=== PATIENT | female | born 1970 | race Caucasian/White ===

== ENCOUNTER → 2019-07-19 09:26 | Outpatient (CLI) | payer OTHER, SELFPAY ==
--- NOTE | ~2019-07-19 | XR_ITS ---
XR foot RT min 3V DATE: 07/19/2019 09:36 INDICATION: Right foot pain TECHNIQUE: 4 views COMPARISON: None FINDINGS: No fracture or dislocation, periosteal reaction or bone destruction. Joint spaces are relat ively preserved. No erosive change. IMPRESSION: No significant abnormality Reviewed, dictated and finalized at location B. BOSS IMPRESSION: No significant abnormality
== END ==
PROVIDERS: PCP Nurse Practitioner; Visit Provider Nurse Practitioner
DX: M79.671 Pain in right foot (principal)
CPT/HCPCS: 73630

== ENCOUNTER → 2019-08-28 08:52 | Outpatient (CLI) | payer OTHER, SELFPAY ==
--- NOTE | ~2019-08-28 | MMUS_ITS ---
EXAMINATION: MM diagnostic ely BI w sabina, US breast LT limited HISTORY: Follow-up left breast mass TECHNIQUE: Additional 3-D tomosynthesis images of the breasts were performed and synthetic 2-D images were generated. CAD analysis was submitted and interpreted. High resolution breast ultrasound was pe rformed. COMPARISON: Comparison to multiple prior studies sequentially, with oldest reviewed study dated 01/09. FINDINGS: MAMMOGRAPHIC FINDINGS: Breast composed of scattered areas of fibroglandular density. The right breast is stable without evid ence for malignancy. There is a focal mass in the upper outer quadrant of the left breast, middle thi rd measuring 7 mm maximum dimension. No suspicious calcifications. ULTRASOUND: High-resolution left breast ultrasound: At 2:00, 2 cm from the nipple, there is a 3 mm simple cyst. At 2:00, 4 cm from the nipple, there is a hypoechoic mass with antiparallel configuration and some angular margins. No significant internal va scularity or posterior features. This mass measures 4 x 4 x 4 mm. IMPRESSION: 1. Irregular shaped hypoechoic 4 mm left breast mass with antiparallel configuration, likely correspo nding to focal mass seen by mammogram. 2. Ultrasound-guided left breast biopsy recommended. BI-RADS category 4, suspicious findings. Reviewed, dictated and finalized at location A. IMPRESSION: 1. Irregular shaped hypoechoic 4 mm left breast mass with antiparallel configur ation, likely corresponding to focal mass seen by mammogram. 2. Ultrasound-guided left breast biopsy recommended. BI-RADS category 4, suspicious findings.
== END ==
PROVIDERS: PCP Student in an Organized Health Care Education/Training Program; Visit Provider Student in an Organized Health Care Education/Training Program
DX: R92.8 Other abnormal and inconclusive findings on diagnostic imaging of breast (principal)
CPT/HCPCS: 76642; 77062; 77066; G0279

== ENCOUNTER 2020-07-13 01:31 | Outpatient (CLI) | payer OTHER, SELFPAY ==
[2020-07-13 18:46] LABS: SARS-CoV-2 RNA PCR Negative
== END 2020-07-13 01:32 | disposition home or self-care (01) ==
LOC: ANHCOVIDDT 01:31
PROVIDERS: Family Provider Internal Medicine; PCP Student in an Organized Health Care Education/Training Program; Visit Provider Internal Medicine Gastroenterology
DX: Z01.812 Encounter for preprocedural laboratory examination (principal); Z20.822 Contact with and (suspected) exposure to COVID-19
CPT/HCPCS: C9803; U0003; U0005

== ENCOUNTER 2020-07-16 01:42 | Day surgery (SDC) | payer OTHER, SELFPAY ==
[2020-07-02 14:14] VITALS: BMI 30.4
[2020-07-16 09:21] VITALS: BP 119/83; PULSE 99; RESP 18; TEMP 36.1; O2SAT 99
[2020-07-16] MEDS: LACTATED RINGERS 1,000 ML 150 ML IV CONT (09:40)
--- NOTE | 2020-07-16 10:15 | PM.HPGS ---
History of Present Illness History of Present Illness Consent: Risks, benefits, and alternatives have been discussed and questions answered. Patient agrees to proceed with procedure. Chief complaint: Neoplasm Screening Narrative: Lauren Harrington is a 50 year old female here for first screening colonoscopy Review of Systems Constitutional: Constitutional: Denies headache(s) and Denies weakness Eyes: Eyes: Denies blurry vision ENT: Reports Normal hearing present, Denies headache(s) and Denies neck pain Cardiovascular: Cardiovascular: Denies chest pain and Denies dyspnea Respiratory: Respiratory: Denies dyspnea Gastrointestinal: Gastrointestinal: Reports no additional gastrointestinal complaints Genitourinary: Genitourinary: Denies dysuria Musculoskeletal: Musculoskeletal: Denies neck pain Integumentary/Breasts: Skin/Breast: Denies dry skin Neurologic: Reports Normal hearing present, Denies headache(s) and Denies weakness Psychiatric: Psychiatric: Denies anxiety Endocrine: Endocrine: Denies change in body appearance Hematologic/Lymphatic: Hematologic/Lymphatic: Denies easy bleeding Allergic/Immunologic: Allergic/Immunologic: Denies urticaria PMF Past Medical History Medical History (Updated 07/16/20 @ 10:16 by Rocael Soler MD) Anxiety Colon cancer screening Depression Other and unspecified hyperlipidemia Surgical History Surgical History History of delivery 02/07/2002 History of colposcopy 2004 Family History Family History Father Coronary arteriosclerosis in [place] artery Other Diabetes mellitus Social History Social History Smoking status: Never smoker Second hand tobacco smoke exposure: No Alcohol intake: current Substance use: never Substance use type: does not use Living arrangements: with family Spiritual care concerns: No Meds Home Medications and Allergies Home Medications Medication Instructions Recorded Confirmed Type atorvastatin 10 mg tablet 10 mg PO DAILY #90 tablet 04/15/20 07/02/20 Rx norethindrone 1 mg-ethinyl 1 tablet PO DAILY #84 tablet 06/25/20 07/02/20 Rx estradiol 20 mcg (21)-iron 75 mg (7) tablet venlafaxine 75 mg capsule,extended 75 mg PO DAILY #90 cap 06/25/20 07/02/20 Rx release 24 hr jhkqybhfwaf-rct-pqccopdkr-vitC 1 cap PO DAILY 07/02/20 07/02/20 History [Glucosamine Complex-MSM] norethindrone-e.estradiol-iron 1 tablet PO DAILY 07/02/20 07/02/20 History [Blisovi Fe 07/03 (28)] Allergies Allergy/AdvReac Type Severity Reaction Status Date / Time ARTIFICIAL SWEETENER Allergy Intermediate Unknown Uncoded 07/16/20 09:20 Vital Signs Vital Signs - 24 hr 07/16/20 09:21 Temperature 97.0 F L Pulse Rate 99 Respiratory Rate 18 Blood Pressure 119/83 Pulse Oximetry 99 Exam Const: General: comfortable and no acute distress HENMT: General nose exam: Normal nares present Eyes: General: appearance normal, both eyes and all related structures Neck: Neck: no JVD Resp: Auscultation: clear to auscultation bilaterally Cardio: Rate: regular rate Rhythm: regular rhythm GI: Inspection: non-distended GI Palp: Yes Soft to palpation Skin: General skin exam: normal color Neuro: General: gait normal Speech: normal speech Extrem: General: normal to inspection Psych: Mental Status: mental status grossly normal Assessment and Plan Assessment and plan (1) Colon cancer screening: Code(s): Z12.11 - Encounter for screening for malignant neoplasm of colon Status: Acute Assessment and Plan: will proceed with colonoscopy
[2020-07-16 10:31] VITALS: BP 96/69; PULSE 81; RESP 17; O2SAT 96
[2020-07-16 10:41] VITALS: BP 127/105; PULSE 65; RESP 19; O2SAT 100
[2020-07-16 10:51] VITALS: BP 102/72; PULSE 67; RESP 19; O2SAT 100
== END 2020-07-16 11:05 | disposition home or self-care (01) ==
PROVIDERS: Family Provider Internal Medicine; PCP Student in an Organized Health Care Education/Training Program; Visit Provider Internal Medicine Gastroenterology
PROC: 0DJD8ZZ Inspection of Lower Intestinal Tract, Via Natural or Artificial Opening Endoscopic (ICD-10-PCS; CPT 45378; principal; 2020-07-16 10:30)
DX: Z12.11 Encounter for screening for malignant neoplasm of colon (principal); K64.8 Other hemorrhoids; E78.5 Hyperlipidemia, unspecified; F41.8 Other specified anxiety disorders
CPT/HCPCS: 45378; C9803; J2704; J7120; U0003; U0005

== ENCOUNTER 2020-10-22 08:06 | Outpatient (CLI) | payer OTHER, SELFPAY ==
--- NOTE | 2020-10-29 16:04 | WPDHOLTEREM ---
Holter/Event Monitor Holter/Event Monitor Date of procedure: 10/22/20 Procedure Type: 48 hour holter monitor Indications: Palpitations Conclusion: 1. 48 hour holter monitor on 10/22/20. 2. Underlying rhythm is sinus rhythm. HR range 52-158 bpm; average HR 78 bpm. 3. No premature supraventricular complexes. No supraventricular tachycardia. 4. There are 643 premature ventricular complexes and 4 ventricular trigeminy. No ventricular tachycardia. 5. No sinoatrial or atrioventricular blocks. No significant pauses greater than 2 seconds. 6. Patient reports symptoms of flutter which demonstrate sinus rhythm, HR range 65-100 and one PVC.
== END 2020-10-22 08:07 | disposition home or self-care (01) ==
PROVIDERS: PCP Internal Medicine; Visit Provider Internal Medicine
DX: R00.2 Palpitations (principal)
CPT/HCPCS: 93225; 93226

== ENCOUNTER 2021-03-17 14:36 | Outpatient (CLI) | payer OTHER, SELFPAY ==
--- NOTE | 2021-03-21 12:58 | WPDHOLTEREM ---
Holter/Event Monitor Holter/Event Monitor Date of procedure: 03/17/21 Holter/Event Procedure: 48 Hr Holter Monitor Indications: Palpitations Conclusion: 1. 48 hour holter monitor on 03/17/21. 2. Underlying rhythm is sinus rhythm. HR range 52-171 bpm; average HR 82 bpm. 3. There are 3 premature supraventricular complexes and 1 supraventricular couplet. No supraventricular tachycardia. 4. There are 3,648 premature ventricular complexes and 176 ventricular trigeminy. No ventricular tachycardia. 5. No sinoatrial or atrioventricular blocks. No significant pauses greater than 2 seconds. 6. Patient reports symptoms of fluttering, lightheadedness, hard beats, shaking, odd beats which demonstrate sinus rhythm, HR range 68-124 bpm and 1 PVC.
== END 2021-03-17 14:37 | disposition home or self-care (01) ==
PROVIDERS: PCP Internal Medicine; Visit Provider Nurse Practitioner
DX: R00.2 Palpitations (principal)
CPT/HCPCS: 93225; 93226

== ENCOUNTER 2022-02-26 13:26 | Outpatient (CLI) | payer OTHER, SELFPAY ==
--- NOTE | 2022-02-26 13:32 | ECHO_ITS ---
Patient Info Name: Lauren Harrington Age: 51 years : 1970 Gender: Female Ht: 63 in Wt: 165 lbs BSA: 1.85 m2 HR: 55 bpm BP: 109 / 86 mmHg Technical Quality: Good Exam Date: 02/26/2022 2:16 PM Exam Location: [facility] Patient Status: Outpatient Admit Date: 02/26/2022 Staff Ordering Physician: Rakesh Ortiz DO Steel Molder: Julieta Stanley RDCS Attending Provider: Rakesh Ortiz DO Referring Physician: Angel GARCIA; Exam Type: CA echo doppler color flow Study Info Indications R06.09 - Other forms of dyspnea Complete two-dimensional, color flow and Doppler transthoracic echocardiogram is performed. Summary 1. Complete two-dimensional, color flow and Doppler transthoracic echocardiogram is performed. 2. Left ventricular chamber dimension is normal. 3. Left ventricular systolic function is normal, estimated at 55-60%. 4. The left ventricular diastolic function is grade I diastolic dysfunction. 5. E/e' 7 is not elevated. 6. There is mild aortic valve regurgitation. Left Ventricle E/e' 7 is not elevated. Left ventricular chamber dimension is normal. Left ventricular systolic function is normal, estimated at 55-60%. The left ventricular diastolic function is grade I diastolic dysfunction. Right Ventricle Right ventricular systolic function is normal and with normal TAPSE 2.4 cm. Right ventricular chamber dimension is normal. Left Atria Left atrial chamber dimension is normal. Right Atria Right atrial chamber dimension is normal. Aortic Valve The aortic valve is trileaflet. There is no aortic valve stenosis. There is mild aortic valve regurgitation. Pulmonic Valve There is no pulmonic regurgitation. Mitral Valve There is no mitral valve stenosis. There is no mitral valve regurgitation. Tricuspid Valve There is no tricuspid valve regurgitation. Pericardium/Pleural There is no pericardial effusion. Inferior Vena Cava Normal inferior vena cava with >50% collapse upon inspiration consistent with normal right atrial pressure, 5 mmHg. Aorta The aortic root size at the sinus of Valsalva is normal. Left Ventricular Outflow Tract Name Value Normal LVOT 2D LVOT Diameter 1.9 cm LVOT Doppler LVOT Peak Gradient 6 mmHg LVOT Mean Gradient 3 mmHg LVOT VTI 27 cm LVOT VTI/AV VTI Ratio 0.9 LVOT Stroke Volume 74 ml LVOT CO 4.2 l/min LVOT CI 2.3 l/min/m2 Mitral Valve Name Value Normal MV Doppler MV Peak Gradient 3 mmHg MV Mean Gradient 1 mmHg MV Decel [place] 556 cm/s2 MV PHT 40 ms
== END 2022-02-26 13:27 | disposition home or self-care (01) ==
PROVIDERS: PCP Internal Medicine; Visit Provider Internal Medicine Cardiovascular Disease
DX: R06.09 Other forms of dyspnea (principal)
CPT/HCPCS: 93306

== ENCOUNTER → 2023-04-01 07:58 | Outpatient (CLI) | payer OTHER, SELFPAY ==
--- NOTE | ~2023-04-01 | XR_ITS ---
Cervical Spine: AP, lateral, open-mouth views Clinical History: Pain Findings: There is straightening of the normal cervical lordosis. There is minimal grade 1 anterolist hesis of C3 over C4. There are minimal degenerative disc changes in the cervical spine. Pre-vertebral soft tissues are unremarkable. Impression: Minimal grade 1 anterolisthesis of C3 over C4. Minimal degenerative disc changes. Reviewed, dictated and finalized at location . Impression: Minimal grade 1 anterolisthesis of C3 over C4. Minimal degenerative disc changes.
== END ==
PROVIDERS: PCP Nurse Practitioner; Visit Provider Nurse Practitioner
DX: M54.2 Cervicalgia (principal)
CPT/HCPCS: 72040

== ENCOUNTER 2024-01-11 11:56 | Emergency (ER) | payer OTHER, SELFPAY ==
--- NOTE | ~2024-01-11 | CT_ITS ---
EXAMINATION: CT abdomen pelvis w con DATE: 01/11/2024 13:30 INDICATION: Low back pain. Nausea and vomiting. TECHNIQUE: Computed tomography (CT) of the abdomen and pelvis was performed with 100 mL Omnipaque 350 intravenous contrast. Automated exposure control and iterative reconstruction technique were employe d. The dose-length product was 410.64 mGy-cm. COMPARISON: CT abdomen and pelvis 12/26/2009 FINDINGS: The visualized portions of the lung bases demonstrate mild atelectasis. A calcified right l lisa nodule and calcified right hilar lymph nodes are consistent with old granulomatous disease. No pl eural effusion. The heart size is normal. No pericardial effusion. There is a small sliding hiatal he rnia. There are cysts in the liver measuring up to 13 mm. The gallbladder is normal. Calcifications i n the spleen are consistent with old granulomatous disease. The pancreas, adrenal glands, and kidneys are normal. There is an umbilical hernia containing fat. There are no dilated loops of bowel. The ap pendix is normal. There are no pathologically enlarged lymph nodes. There is no free intraperitoneal fluid. There is mild thoracic and lumbar spondylosis. IMPRESSION: 1. Umbilical hernia containing fat. Reviewed, dictated and finalized at location A.
[2024-01-11 11:58] VITALS: BP 131/64; PULSE 56; RESP 16; TEMP 36.3; O2SAT 100
[2024-01-11 12:20] VITALS: BP 119/72; O2SAT 100
[2024-01-11 12:25] LABS: BEDSIDEPREGUCG Negative
[2024-01-11 12:28] LABS: Basophils Percent Auto 0.5 % (0.2-1.2); Eosinophils Absolute Auto 0.1 K/mm3 (0-0.3); Eosinophils Percent Auto 0.8 % (0-4.4); Hematocrit 44.1 % (37.0-47.0); Hemoglobin 14.2 g/dL (12.0-15.0); Lymphocytes Absolute Auto 2.01 K/mm3 (0.9-3.2); Lymphocytes Percent Auto 33.4 % (18.3-44.2); Mean Corpuscular HGB Conc 32.2 g/dl (32-36); Mean Corpuscular Hemoglobin 28.3 pg (26-34); Mean Platelet Volume 9.3 fl (7.4-10.4); Monocytes Absolute Auto 0.5 K/mm3 (0.1-0.6); Monocytes Percent Auto 7.6 % (2.6-8.5); Neutrophils Absolute Auto 3.5 K/mm3 (1.3-6.7); Neutrophils Percent Auto 57.7 % (45.5-73.1); Platelet Count Result 320 k/mm3 (150-375); Red Blood Count 5.01 M/mm3 (4.2-5.4); Red Cell Distribution Width 13.1 % (11.5-14.5)
[2024-01-11 12:31] VITALS: BP 124/63; PULSE 57; RESP 16; O2SAT 99
[2024-01-11 12:37] LABS: Appearance Urine Clear (Clear); Bacteria Urine None Seen /hpf; Bilirubin Urine Negative (Negative); Blood Urine Negative (Negative); Color Urine Yellow (Yellow); Glucose Urine UA Negative (Negative); Ketones Urine Negative (Negative); Leukocyte Esterase Ur 2+ LEU/UL (Negative); Nitrate Urine Negative (Negative); Non Pathogenic Casts 0-2; Protein Urine Negative (Negative); RBC Urine 0-2 /hpf (0-2); Specific Grav Ur 1.012 (1.001-1.035); Squamous Epithelial Cell Urine None Seen /hpf (Few); Urobilinogen Urine 0.2 mg/dL (<2.0)
[2024-01-11 12:39] LABS: Alanine Aminotransferase 21 U/L (6-35); Albumin Level 4.9 g/dL (3.5-5.1); Alkaline Phosphatase 84 U/L (38-126); Anion Gap 11 mmol/L (4-12); Aspartate Amino Transferase 24 U/L (14-36); Bilirubin,Total 0.4 mg/dL (0.2-1.3); Blood Urea Nitrogen 15 mg/dL (7-17); Calcium 9.6 mg/dL (8.4-10.2); Carbon Dioxide 27 mmol/L (22-30); Chloride 100 mmol/L (98-107); Estimated CRCL calculation 58 ml/min; Estimated Glomerular Filt Rate > 60; Glucose 92 mg/dL (65-110); Lipase 75 U/L (23-300); Potassium 4.3 mmol/L (3.4-5.0); Sodium 138 mmol/L (137-145)
[2024-01-11 12:42] LABS: Add Urine Microscopic? YES
[2024-01-11] MEDS: ONDANSETRON INJ 4 MG/2 ML VIAL IV PUSH (12:54)
[2024-01-11] MEDS: SODIUM CHLORIDE 0.9% IV 1,000 ML 999 ML IV CONT (12:54)
[2024-01-11 13:01] VITALS: BP 108/54; PULSE 55; RESP 17; O2SAT 100
--- NOTE | 2024-01-11 13:19 | ED.NAVMDI ---
HPI - Nausea/Vomiting/Diarrhea General Chief complaint: Nausea/Vomiting/Diarrhea Stated complaint: N/V Time Seen by Provider: 01/11/24 12:15 Source: patient Mode of arrival: ambulatory Limitations: no limitations History of Present Illness HPI Narrative: Patient is a 53-year-old female who presents the ED with report of nausea and vomiting. Patient reports over the last several days, she has had persistent nausea. She reports vomiting over the weekend, but states she has not had any episodes of emesis since Wednesday. She does report decreased appetite, generalized weakness/fatigue. Reports intermittent lower back cramping, denies significant abdominal pain. Denies diarrhea, constipation, fevers, dysuria, hematuria, cough or cold sx's. Related Data Allergies Allergy/AdvReac Type Severity Reaction Status Date / Time ARTIFICIAL SWEETENER Allergy Intermediate Unknown Uncoded 07/22/23 07:10 Review of Systems Review of Systems: CONSTITUTIONAL: Denies fever, chills, or sweats. CARDIOVASCULAR: Denies chest pain RESPIRATORY: Denies cough or dyspnea. GASTROINTESTINAL: See HPI. GENITOURINARY: Denies dysuria or hematuria. MUSCULOSKELETAL: See HPI. All systems reviewed & are unremarkable except as noted in HPI and below PMFSH Past Medical History Medical History Anxiety Colon cancer screening Depression Other and unspecified hyperlipidemia Surgical History Surgical History History of delivery 02/07/2002 History of colposcopy 07/16/20 Normal Family History Family History Father Coronary arteriosclerosis in [place] artery Other Diabetes mellitus Social History Social History Smoking status: Never smoker Second hand tobacco smoke exposure: No Alcohol intake: current Alcohol use details: social Substance use: never Substance use type: does not use Lack of Transportation: No Lack of Food: Never True Current Housing: I Have Housing Concerned About Future Housing: No Difficulty Paying Gas/Electric Bills: No Difficulty Paying for Meds: No Currently Unemployed: No Education: Trade/Vocational Certificate Difficulty w/ Childcare or Family Care: No Living arrangements: with family Spiritual care concerns: No Exam Narrative: GENERAL: Well appearing, well-nourished, non-toxic, in no acute distress. HEAD: Normocephalic, atraumatic. RESPIRATORY: Airway patent, respirations nonlabored. Clear to auscultation bilaterally, no rales, rhonchi, wheezing. CARDIOVASCULAR: Regular rate and rhythm without murmurs, rubs, or gallops. ABDOMINAL: Soft, minimal tenderness throughout lower abdomen, nondistended. Normoactive BS. MUSCULOSKELETAL: Moves all extremities. No gross deformities. SKIN: Warm, dry, normal color. NEURO: A&O X3. Speech clear. Cranial nerves II-XII grossly intact. Steady gait. No ataxic movements. PSYCHIATRIC: Appropriate mood and affect. Normal interaction. Course Vital Signs Vital signs: Vital Signs Temperature 97.4 F L 01/11/24 11:58 Pulse Rate 56 L 01/11/24 11:58 Respiratory Rate 16 01/11/24 11:58 Blood Pressure 131/64 01/11/24 11:58 Pulse Oximetry 100 01/11/24 11:58 Oxygen Delivery Room Air 01/11/24 11:58 Temperature 97.4 F L 01/11/24 11:58 Pulse Rate 55 L 01/11/24 15:10 Respiratory Rate 16 01/11/24 15:10 Blood Pressure 111/73 01/11/24 15:10 Pulse Oximetry 100 01/11/24 15:10 Oxygen Delivery Room Air 01/11/24 11:58 MDM - Nausea/Vomiting/Diarrhea MDM Narrative Medical decision making narrative: Patient presented to ED with several day history of nausea, recent vomiting. Vital signs are stable upon arrival. Patient afebrile. Exam unremarkable. She clinically appears wel
[2024-01-11 13:38] VITALS: BP 92/73; O2SAT 100
[2024-01-11 15:10] VITALS: BP 111/73; PULSE 55; RESP 16; O2SAT 100
== END 2024-01-11 15:11 | disposition home or self-care (01) ==
PROVIDERS: Emergency Medicine; Emergency Provider Physician Assistant; PCP Nurse Practitioner
DX: N39.0 Urinary tract infection, site not specified (principal); R11.2 Nausea with vomiting, unspecified; E78.5 Hyperlipidemia, unspecified
CPT/HCPCS: 36415; 74177; 80053; 81001; 81025; 83690; 85025; 87086; 96361; 96374; 99284; J2405; J7030; Q9967

== ENCOUNTER 2024-01-22 17:20 | Emergency (ER) | payer OTHER, SELFPAY ==
--- NOTE | ~2024-01-22 | XR_ITS ---
EXAMINATION: XR finger 1st RT min 2V DATE: 01/22/2024 17:38 INDICATION: Right thumb injury and pain. TECHNIQUE: 3 views of right thumb were obtained. COMPARISON: None. FINDINGS: Bone alignment is normal. There is a nondisplaced transverse fracture of tuft of first dist al phalanx. Joint spaces are normal. IMPRESSION: 1. Nondisplaced transverse fracture of tuft of first distal phalanx. Reviewed, dictated and finalized at location E.
--- NOTE | 2024-01-22 17:26 | ED.GENADULT ---
HPI - General Adult General Chief complaint: Extremity Injury, Upper Stated complaint: R THUMB INJURY Time Seen by Provider: 01/22/24 17:26 Source: patient, RN notes reviewed and old records reviewed Mode of arrival: ambulatory Limitations: no limitations History of Present Illness HPI narrative: 53-year-old female to [facility] for complaint right thumb pain after closing it in a vehicle door. Patient states that she took 1g of Tylenol prior to arrival. Patient reporting pain 8/10 currently. Patient denies prior injury, numbness, tingling, or pain radiating into hand. Patient anxious and in mild distress from pain. Respirations even and nonlabored. Patient in no acute distress. Related Data Home Medications Medication Instructions Recorded Confirmed venlafaxine 75 mg capsule,extended 75 mg PO DAILY 01/20/24 01/22/24 release 24 hr Allergies Allergy/AdvReac Type Severity Reaction Status Date / Time ARTIFICIAL SWEETENER Allergy Intermediate Unknown Uncoded 01/22/24 17:30 Review of Systems Review of Systems: All systems reviewed & are unremarkable except as noted in HPI and below Constitutional: Constitutional: Reports no additional constitutional complaints Eyes: Eyes: Reports no additional eye complaints ENT: Reports system reviewed and no additional complaints, except as documented Cardiovascular: Cardiovascular: Reports no additional cardiovascular complaints, Denies chest pain and Denies dyspnea Respiratory: Respiratory: Reports no additional respiratory complaints, Denies cough and Denies dyspnea Musculoskeletal: Musculoskeletal: Reports as per HPI, Reports arthralgias and Reports joint swelling Comments: right distal thumb Neurologic: Reports system reviewed and no additional complaints, except as documented Psychiatric: Psychiatric: Reports no additional psychiatric complaints PMFSH Past Medical History Medical History Anxiety Colon cancer screening Depression Other and unspecified hyperlipidemia Surgical History Surgical History History of delivery 02/07/2002 History of colposcopy 07/16/20 Normal Family History Family History Father Coronary arteriosclerosis in [place] artery Other Diabetes mellitus Social History Social History Smoking status: Never smoker Second hand tobacco smoke exposure: No Alcohol intake: current Alcohol use details: social Substance use: never Substance use type: does not use Lack of Transportation: No Lack of Food: Never True Current Housing: I Have Housing Concerned About Future Housing: No Difficulty Paying Gas/Electric Bills: No Difficulty Paying for Meds: No Currently Unemployed: No Education: Trade/Vocational Certificate Difficulty w/ Childcare or Family Care: No Living arrangements: with family Spiritual care concerns: No Comments At the time of my signature, I reviewed and agree with the nursing past medical, surgical, social, and family history. There is no relevant family history pertinent to the patient complaint. Exam Const: General: cooperative, healthy appearing, no acute distress, alert, anxious, uncomfortable, well groomed and well nourished Nutritional Appearance: well nourished Orientation/consciousness: patient oriented x3 Limitations: no limitations HENMT: Head: normal to inspection Ears: external ears normal Face/Nose/Sinus: Normal external nose present, Normal nares present, normal facial exam, No erythema and No edema Face and sinus: normal facial exam, no erythema and no edema Mouth: Yes Normal oral and palatal mucosa present Eyes: General: appearance normal, both eyes and all related structures Neck: Neck: normal visual inspecti
[2024-01-22 17:38] VITALS: BP 116/67; PULSE 65; RESP 16; TEMP 36.8; O2SAT 99
== END 2024-01-22 18:04 | disposition home or self-care (01) ==
PROVIDERS: Emergency Provider Nurse Practitioner Family; PCP Nurse Practitioner
DX: S62.521A Displaced fracture of distal phalanx of right thumb, initial encounter for closed fracture (principal); V48.3XXA Unspecified car occupant injured in noncollision transport accident in nontraffic accident, initial encounter; F41.9 Anxiety disorder, unspecified; F32.A Depression, unspecified
CPT/HCPCS: 11740; 29130; 73140; 99214; G0463